=== PATIENT | male | born 1960 | race Caucasian/White ===

== ENCOUNTER 2018-07-08 13:29 | Emergency (ER) | payer MEDICARE, MEDICAID, SELFPAY ==
[2018-07-08 13:39] VITALS: BP 159/74; PULSE 83; RESP 16; TEMP 36.9; O2SAT 98
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
[2018-07-08 14:14] LABS: Bilirubin Negative (Negative); Blood Negative (Negative); Clarity Clear; Glucose Negative (Negative); Ketones Negative (Negative); Leukocyte Esterase Negative (Negative); Nitrite Negative (Negative); Urobilinogen 0.2 EU/dL (Up TO 0.2); pH 5.5 (5-8)
[2018-07-08 14:19] LABS: Abs Immature Grans 0.01 k/cumm (0.0-0.09); Absolute Basophil Count 0.01 k/cumm (0.0-0.2); Absolute Eosinophil Count 0.04 k/cumm (0.0-0.7); Absolute Lymphocyte Count 1.65 k/cumm (1.2-3.4); Absolute Monocyte Count 1.05 k/cumm (0.11-0.7); Basophils % 0.1; Eosinophils % 0.6; HCT 41.8 % (40.0-50.0); HGB 14.6 g/dL (13.5-17.5); Immature Grans % 0.1; Lymphocytes % 23.4; Mean Corp. HGB Concentration 34.9 g/dL (32.0-36.0); Mean Corpuscular Hemoglobin 32.7 pg (27.0-33.0); Mean Corpuscular Volume 93.5 fL (80-95); Monocytes % 14.9; Neutrophils % 60.9; Platelet Count 264 x1000/uL (130-400); RBC 4.47 m/cumm (4.50-6.00); RBC Distribution Width 14.5 % (11.8-14.1); White Blood Cell Count 7.06 k/cumm (4.4-10.8)
[2018-07-08 14:22] LABS: *AMPHETAMINES SCREEN URINE Negative (Negative); *BARBITURATES SCREEN URINE Negative (Negative); *BENZODIAZEPINES SCREEN URINE Negative (Negative); Cannabinoids THC POSITIVE (Negative); Cocaine Screen,Urine Negative (Negative); METHADONE URINE SCREEN Negative (Negative); OPIATES URINE SCREEN Negative (Negative)
[2018-07-08 14:23] LABS: Tricyclic Antidepressants Negative (Negative)
[2018-07-08 14:38] LABS: VALPROIC ACID 18.9 ug/mL (50-100)
[2018-07-08 14:51] LABS: Acetaminophen < 2 ug/mL (10-30); Salicylate 3.9 mg/dL (2.8-20.0)
[2018-07-08 14:58] LABS: ALT 16 U/L (12-78); AST 21 U/L (15-37); Albumin 3.3 g/dL (3.4-5.0); Alkaline Phosphatase 96 U/L (46-116); Anion Gap 5.5 mmol/L (3-11); BUN 8 mg/dL (7-18); Bilirubin, Total 0.4 mg/dL (0.2-1.0); CO2 27.5 mmol/L (21.0-32.0); CREATININE 0.79 mg/dL (0.70-1.30); Calcium 8.5 mg/dL (8.5-10.1); Chloride 104 mmol/L (98-107); Glucose 101 mg/dL (70-100); Potassium 4.3 mmol/L (3.5-5.1); Sodium 137 mmol/L (136-145); TSH 1.02 uIU/mL (0.358-3.74); Total Protein 7.4 g/dL (6.4-8.2)
[2018-07-08 15:14] LABS: ETHANOL BLOOD < 3.0 mg/dL (<3)
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
--- NOTE | 2018-07-08 16:52 | PDOC.ERCMPRO ---
Care Management Progress Note 07/08-Please see Miriam DOUGLAS, note on Prosper's ED admit. Currently we are waiting for [facility] to call back. Prosper is stating to Miriam and to Marisol from [facility] that he is not suicidal or homicidal. At this time, it appears that patient will be discharged back home. Marisol states he will be calling [facility] for transport as they are the ones that brought him. Please see Miriam's note for further details. Multiple huddles this afternoon with providers, [facility], and sawmill supervisor. Care plan below to be followed. Prosper Sy Care Plan 07/08/18 1. Patient being evaluated by [facility] now 2. Regular foods, may have a spoon, nursing to account for post meals 3. Patient is in paper clothing 4. Patient sitter for one on one, sage FIERRO LPN, RN 5. Patient can have phone 6. No personal belongings in the room 7. Supervised to bathroom 8. May have television if available 9. Comfort bath system, supervised to shower when available 10. May have crayons, paper, and activities from the mental health activity cart in ED Please adhere to this Care Plan. Any changes, you must call BRENDONPatricia glass processing worker ([phone]) and [facility] paper cone grader Publicity Expert ([phone]), have a huddle and a new Care Plan must be written.
--- NOTE | 2018-07-08 16:59 | CMPROGNOTE_ITS ---
Care Management Progress Note 07/08-Please see Miriam DOUGLAS, note on Prosper's ED admit. Currently we are waiting for [facility] to call back. Prosper is stating to Miriam and to Marisol from [facility] that he is not suicidal or homicidal. At this time, it appears that patient will be discharged back home. Marisol states he will be calling [facility] for transport as they are the ones that brought him. Please see Miriam's note for further details. Multiple huddles this afternoon with providers, [facility], and steamfitter supervisor. Care plan below to be followed. Prosper Sy Care Plan 07/08/18 1. Patient being evaluated by [facility] now 2. Regular foods, may have a spoon, nursing to account for post meals 3. Patient is in paper clothing 4. Patient sitter for one on one, sage FIERRO LPN, RN 5. Patient can have phone 6. No personal belongings in the room 7. Supervised to bathroom 8. May have television if available 9. Comfort bath system, supervised to shower when available 10. May have crayons, paper, and activities from the mental health activity cart in ED Please adhere to this Care Plan. Any changes, you must call BRENDONPatricia cripple worker ([phone]) and [facility] director of education Integrated Circuit Layout Designer ([phone]), have a huddle and a new Care Plan must be written.
[2018-07-08 18:20] VITALS: BP 140/74; PULSE 80; RESP 14; TEMP 35.5; O2SAT 96
--- NOTE | 2018-07-09 12:53 | PDOC.ERCMPRO ---
Date of Service: 07/08/18 Time of Service: 18:00 Care Management Progress Note CM contacted by ED to arrange transportation family is unwilling to transport patient home. Patient has medicaid and should be eligagiaqble for [facility]. However he lives in [place], [place] medicaid transportation is through [employer] in that area. ED attempted to contact [employer] and transportation was declined due to time of the call and was reported that transportation needed to be arranged prior to 4:00 pm. CM attempted follow up and was unable to contact [employer] services. CM contacted [facility] and requested that patient be returned home through their services as he is currently in [place] not in [place]. Lenora agrees to have patient transported home with a authorization that the hospital will pay the cost of transportation if medicaid does not cover the trip. Lenora reports that criteria must be met which is that the transportation was declined by area service. CM reported off to the ED child care education coordinator who faxed the approval to [facility] this morning. CM left a voicemail for Keisha Barajas to follow up transportation cost and identify why medicaid is not being billed for the service.
--- NOTE | 2018-07-09 13:03 | CMPROGNOTE_ITS ---
Date of Service: 07/08/18 Time of Service: 18:00 Care Management Progress Note CM contacted by ED to arrange transportation family is unwilling to transport patient home. Patient has medicaid and should be eligagiaqble for [facility]. However he lives in [place], [place] medicaid transportation is through [employer] in that area. ED attempted to contact [employer] and transportation was declined due to time of the call and was reported that transportation needed to be arranged prior to 4:00 pm. CM attempted follow up and was unable to contact [employer] services. CM contacted [facility] and requested that patient be returned home through their services as he is currently in [place] not in [place]. Lenora agrees to have patient transported home with a authorization that the hospital will pay the cost of transportation if medicaid does not cover the trip. Lenora reports that criteria must be met which is that the transportation was declined by area service. CM reported off to the ED pet care assistant who faxed the approval to [facility] this morning. CM left a voicemail for Keisha Barajas to follow up transportation cost and identify why medicaid is not being billed for the service.
== END 2018-07-08 19:07 | disposition home or self-care (01) ==
PROVIDERS: Physician Assistant; Emergency Provider Student in an Organized Health Care Education/Training Program; PCP Family Medicine
DX: F31.9 Bipolar disorder, unspecified (principal)
CPT/HCPCS: 36415; 80053; 80307; 99285; 80164; 80320; 80329; 81003; 84443; 85025; 99284

== ENCOUNTER 2025-05-07 22:30 | Inpatient (IN) | payer MEDICARE, MEDICAID, SELFPAY ==
--- NOTE | 2025-05-07 20:03 | W.PC.ACHO ---
Registration Status: PRE IN Primary Language: Preferred Language: Occitan Allergies No Known Allergies Allergy (Unverified 07/08/18 13:42) v v v v v v v v v Sending and/or Receiving Nurses: Please use comment section below to note any information pertinent to the patient hand-off not included above. Information / Comments: Pt presented to [facility] via EMS with chief complaint of AMS. Pt found to be hypoxic with new O2 requirement-2L/min NC-diagnosed with PNA. Pt has baseline R sided weakness d/t previous stroke, question if PNA is aspiration related. No speech evaluation completed per [facility], per RN pt not agreeable to speech consultation today. Pt is baseline incontinent of stool/urine, per RN last BM this afternoon and was diarrhea. Per RN, no skin breakdown noted. Last blood glucose check 74, no insulin coverage required. Pt has 2 20g PIV in the L arm, one in the forearm and one in the AC. Pt has received one dose pip/crystal 3.375g. Last lab values: WBC 10, Hgb 11.8, Hct 34.6, plt WNL. No electrolyte abnormalities per RN. Report received from: MAG Capps [facility]
--- NOTE | 2025-05-07 22:51 | W.PM.HP.N ---
Date of service: 05/07/25 Time of Service: 22:51 Assessment and Plan Assessment and plan (1) Hypoxic respiratory failure: Start date: 05/07/25 Status: Acute Assessment and plan: This is a 64-year-old gentleman who was transferred from [facility] for treatment of aspiration pneumonia. No imaging reports for accompanying patient during transfer. No labs were accompanying patient. Forward chest x-ray does reveal probable left lower lobe infiltrate with patient not having a history of choking or having difficulty swallowing but having very dry mouth with coarse cough. He did not have a fever or elevated WBC. He does have increased oxygen needs. Admit for oxygen supplementation and continue IV Zosyn following up imaging for improvement. Patient should be off oxygen before going home. He is a full code. (2) Aspiration pneumonia: Start date: 05/07/25 Status: Acute Assessment and plan: Swallow evaluation before feeding. This is a left-sided lower lobe infiltrate which is not consistent with aspiration but usually on the right. Patient has no history to suggest aspiration. He is a poor historian. He has had a previous stroke but appears to have a little residual other than generalized weakness. (3) Type 2 diabetes mellitus: Status: Chronic Assessment and plan: Hold metformin and glucometer measurements before meals and at bedtime with sensitive sliding scale coverage. (4) Vascular dementia with behavior disturbance: Status: Chronic Assessment and plan: Patient does appear to have some altered short-term memory but no focal motor deficits or neurological complaints at this time. Swallow evaluation. Review home care prior to discharge to advise on increased home care needs if needed. This should also be followed by his PCP. (5) Bipolar mood disorder: Status: Chronic Assessment and plan: Continue outpatient medical therapy. (6) Hyperlipidemia: Status: Chronic Assessment and plan: Continue outpatient medical therapy. History of Present Illness History of Present Illness Chief Complaint: Cough for 1 week with loss of voice. Narrative: This is a 64-year-old male patient who has vascular dementia and diabetes and was a previous smoker who presented to [facility] with a cough for 1 week which was progressive without fever and with minimal production. He was hypoxic with new oxygen needs not being on oxygen at home and is on no respiratory treatments at home. He does have compromised ability to function with generalized weakness after a stroke and lives with his sister and [id number]. He was in the ED at [facility] did receive Zosyn 1 dose without further and remained hypoxic not being able to be discharged. He was transferred to this institution for inpatient treatment of what appeared to be an aspiration pneumonia according to [facility]. Imaging was not delivered with the patient in transfer. Initial evaluation at this institution as an inpatient hypoxemia without hypercapnia and normal pH on VBG. Lites were normal and the patient was slightly up at 117 with patient have a history of diabetes on metformin. He did not have an elevated FVC viral screening was pending urine drug screen was performed because of patient's slight confusion this was negative. He has no history of prescribed controlled substances or illicit drug use. The patient will remain on Zosyn IV with follow-up imaging and attempt to wean off O2 as he improves. Albuterol nebulizer treatments will be used to help clear secretions. He is a full code. Review of Systems Narrative: 13 point review of systems otherwise unrevealing or stable. Patient is with no weight change and does complain of generalized weakness after his stroke. He usually does not speak with a hoarse voice though he does have some mild confusion with vascular dementia. PFSH All Active Problems (Updated 05/08/25 @ 00:47 by Yomi Chen) Vascular dementia with behavior disturbance (Chronic) Type 2 diabetes mellitus (Chronic) Hyperlipidemia (Chronic) Bipolar mood disorder (Chronic) Aspiration pneumonia (Acute) Hypoxic respiratory failure (Acute) Social History Smoking risk assessment performed?: No Housing: house Do you feel safe in your relationship?: Yes Meds Allergies and Home Medications Allergies Allergy/AdvReac Type Severity Reaction Status Date / Time No Known Allergies Allergy Unverified 07/08/18 13:42 Home Medications ?Medication ?Instructions ?Recorded ?Confirmed ?Type divalproex 500 mg tablet,delayed 1,500 mg PO DAILY 07/08/18 07/08/18 History release (Depakote) atorvastatin 80 mg tablet (Lipitor) 80 mg PO DAILY 05/08/25 05/08/25 History cetirizine 10 mg tablet 10 mg PO Q12H PRN 05/08/25 05/08/25 History clopidogrel 75 mg tablet (Plavix) 75 mg PO DAILY 05/08/25 05/08/25 History fluticasone propionate 50 1 spray intranasal DAILY PRN 05/08/25 05/08/25 History mcg/actuation nasal spray,suspension guaifenesin 600 mg tablet, 600 mg PO BID PRN 05/08/25 05/08/25 History extended release 12 hr metformin 500 mg tablet 500 mg PO DAILY 05/08/25 05/08/25 History Exam Narrative Exam Narrative: General: Patient appears older than stated age, thin and appears chronically ill. He is alert and oriented at least to person and place. His history changes during conversation. His uncertain whether he can hear well. He is mildly confused at baseline. He is in no acute distress speaking in a whispering voice. HEENT: Normocephalic, coarsened facial features, eyes with pupils equal and reactive to light symmetrically, extraocular move intact and sclera anicteric. Oropharynx with dry mucosa and a dentulous. Neck: Supple without JVD. Back: Stooped posture without CVA tenderness. Lungs: Poor respiratory effort with fair aeration, bronchovesicular breath sounds diffusely with decreased aeration over the left compared to right base and expiratory coarse crackles mom focalizing. No rhonchi or expiratory wheeze. No prolonged expiratory phase. Heart: Regular rate and rhythm with distant heart sounds, no murmurs or gallops appreciated. Abdomen: Scaphoid contour, soft and nontender to palpation with no palpable hepatosplenomegaly. Bowel sounds positive all quadrants. Contact aspect: Exam deferred. Extremities: Without clubbing, cyanosis or pitting edema. Fair capillary refill. Muscle wasting diffusely. Skin: Pale, slightly moist and warm. Neuro: Cranial nerves II through XII grossly intact, no tremor. Patient has decreased motor strength diffusely without focalizing. Negative Babinski. Several testing was not performed. Patient has to be assisted to sit up in bed. Psych: Flattened affect with normal mood but repeating himself during conversation. No abnormal thought processes. Remote memory grossly intact with recent memory less intact. Results Imaging Imaging Studies: Exam: XR Chest Exam date and time: 05/07/2025 11:15 PM Age: 64 years old Clinical indication: Hypoxia with pna TECHNIQUE: Imaging protocol: Radiologic exam of the chest. Views: 1 view. COMPARISON: No relevant prior studies available. FINDINGS: Lungs: There is coarse airspace opacification at the left lung base, uncertain chronicity. The underlying lungs are hyperaerated and hyperlucent, probable degree of COPD. Pleural spaces: Blunting of the left costophrenic angle consistent with small left pleural effusion. Heart/Mediastinum: Unremarkable. No cardiomegaly. Bones/joints: Unremarkable. IMPRESSION: Concern for left lower lobe pneumonia. Follow-up to assess clearing recommended. Labs 05/08/25 06:09 05/08/25 06:09 Time Spent Time spent with Patient: >75 minutes Time was spent: preparing to see the patient(eg.review tests), obtaining and/or reviewing separately otained hiistory, ordering medications,tests, procedures, indepentently interpreting results, care coordination and other (Reviewing [facility] transfer information.)
[2025-05-07 22:56] VITALS: BP 100/60; PULSE 57; RESP 16; TEMP 36.2; O2SAT 98
[2025-05-07 23:02] LABS: HCT 29.7 % (40.0-50.0); HGB 9.8 g/dL (13.5-17.5); MCH 31.8 pg (27.0-33.0); MCV 96 fL (80-95); MPV 9.4 fL (8.0-11.0); Platelet Count 103 10^3/uL (130-400); RBC 3.08 10^6/uL (4.36-5.78); RDW 15.2 % (11.8-14.1); RDW-SD 53.1 fL; WBC 4.65 10^3/uL (4.4-10.8)
--- NOTE | 2025-05-07 23:18 | DI.RAD_ITS ---
Exam(s) XR PORTABLE CHEST AP EXAM: XR PORTABLE CHEST AP CLINICAL HISTORY: Hypoxia wuith PNA TECHNIQUE: 2D digital imaging was performed. COMPARISON: No exams were available for comparison FINDINGS: LUNGS: Small left pleural effusion. Infiltrate in left lower lobe. The right lung appears clear. There is suture material at the left medial lung apex. HEART: Normal size. AORTA: Normal diameter. BONES: old rib fractures. Soft tissues: Unremarkable. IMPRESSION: Left lower lobe pneumonia. Small left pleural effusion. DATA REPOSITORY: RADIATION DOSE DELIVERED:
[2025-05-07 23:24] LABS: BE (Venous) 5 mmol/L (-2-3); HCO3 (Venous) 30 mmol/L (23-28); O2 Sat (Venous) 40 %; TCO2 (Venous) 28 mmol/L (24-29); pCO2 (Venous) 49 mmHg (41-51); pO2 (Venous) 27 mmHg
[2025-05-07 23:28] LABS: Anion Gap 0.9 mmol/L (3-11); BUN 9 mg/dL (7-18); CO2 31.1 mmol/L (21.0-32.0); CREATININE 0.7 mg/dL (0.70-1.30); Calcium 8.2 mg/dL (8.5-10.1); Chloride 108 mmol/L (98-107); Estimated GFR 102.25 (mL/min/1.73m2); Glucose 117 mg/dL (74-106); Potassium 4.4 mmol/L (3.5-5.1); Sodium 140 mmol/L (136-145); TSH (W/Ref FT4) 3.07 uIU/mL (0.36-3.74)
--- NOTE | 2025-05-07 23:38 | DI.VRAD_ITS ---
PROCEDURE INFORMATION: Exam: XR Chest Exam date and time: 05/07/2025 11:15 PM Age: 64 years old Clinical indication: Hypoxia with pna TECHNIQUE: Imaging protocol: Radiologic exam of the chest. Views: 1 view. COMPARISON: No relevant prior studies available. FINDINGS: Lungs: There is coarse airspace opacification at the left lung base, uncertain chronicity. The underlying lungs are hyperaerated and hyperlucent, probable degree of COPD. Pleural spaces: Blunting of the left costophrenic angle consistent with small left pleural effusion. Heart/Mediastinum: Unremarkable. No cardiomegaly. Bones/joints: Unremarkable. IMPRESSION: Concern for left lower lobe pneumonia. Follow-up to assess clearing recommended. Dictated and Authenticated by: Andreina Uriostegui MD. Orderin April Celaya MD
[2025-05-08] VITALS (9 sets, daily range): BP systolic 105–123; BP diastolic 52–60; PULSE 61–73; RESP 16–22; TEMP 36–36.6; O2SAT 94–100
[2025-05-08 00:33] LABS: Bilirubin Negative (Negative); Blood Negative (Negative); Clarity Clear (Clear); Glucose Negative (Negative); Ketones Negative (Negative); Leukocyte Esterase Negative (Negative); Nitrite Negative (Negative); Specific Gravity 1.025 (1.005-1.025); pH 6.5 (5-8)
[2025-05-08 00:49] LABS: *AMPHETAMINES SCREEN URINE Negative (Negative); *BENZODIAZEPINES SCREEN URINE Negative (Negative); Cannabinoids THC Negative (Negative); Cocaine Screen,Urine Negative (Negative); METHADONE URINE SCREEN Negative (Negative); OPIATES URINE SCREEN Negative (Negative)
[2025-05-08 00:50] LABS: *BARBITURATES SCREEN URINE Negative (Negative); Tricyclic Antidepressants Negative (Negative)
[2025-05-08] MEDS: Enoxaparin 40 MG/0.4 ML SYR SC (01:07)
[2025-05-08 06:36] LABS: HCT 35.7 % (40.0-50.0); HGB 11.6 g/dL (13.5-17.5); MCH 31.4 pg (27.0-33.0); MCHC 32.5 % (32.0-36.0); MCV 97 fL (80-95); MPV 9.6 fL (8.0-11.0); Platelet Count 155 10^3/uL (130-400); RDW 14.6 % (11.8-14.1); RDW-SD 52.2 fL; WBC 8.09 10^3/uL (4.4-10.8)
[2025-05-08 07:02] LABS: ALT 17 U/L (16-63); AST 31 U/L (15-37); Albumin 2.3 g/dL (3.4-5.0); Alkaline Phosphatase 56 U/L (46-116); Anion Gap 7.6 mmol/L (3-11); BUN 8 mg/dL (7-18); Bilirubin, Total 0.5 mg/dL (0.2-1.0); CO2 28.4 mmol/L (21.0-32.0); CREATININE 0.9 mg/dL (0.70-1.30); Calcium 8.4 mg/dL (8.5-10.1); Chloride 104 mmol/L (98-107); Estimated GFR 94.78 (mL/min/1.73m2); Glucose 121 mg/dL (74-106); Magnesium 1.4 mg/dL (1.8-2.4); Potassium 3.7 mmol/L (3.5-5.1); Sodium 140 mmol/L (136-145); Total Protein 6.3 g/dL (6.4-8.2)
[2025-05-08] MEDS: Divalproex 500 MG TABEC 1500 MG PO (08:46)
[2025-05-08] MEDS: Clopidogrel 75 MG TAB PO (08:46)
[2025-05-08] MEDS: Acetaminophen 325 MG TAB PO ×2 (09:04→14:43)
[2025-05-08] MEDS: Normal Saline Flush 10 ML SYR IVP ×4 (09:05→22:55)
--- NOTE | 2025-05-08 09:37 | INITIAL_ITS ---
Date of service: 05/08/25 Time of Service: 09:37 Care Management Initial Assmt Initial Assessment Reason for Hospitalization: aspiration pneumonia Functional Status/Living Situation Patient Presentation: Prosper presented to [facility] from [facility], where there was no bed availability for him. He had complaints of a cough x 1 week. He is requiring O2, is on RA as baseline. Prosper has generalized weakness from a stroke, and he lives with his sister, Katharina and brother in [place], who are his Choices for Care paid caregivers through [facility]. Prosper's Engineering Intern is Brenda, through the [facility] on Aging. Prosper has a very supportive family, whom are all close. He has a dog, Shanel, whom he spends a lot of time with. Prosper has limited speech, but is able to make himself clear, and he does understand. He is extremely friendly and quick with a smile. Prosper had a barium swallow today. He is also ordered for a speech consult, which Katharina was pleased to know, as Dominick sometimes has trouble with thin liquids and large pills. Prosper has a psychiatric history, and he will be reestablishing care at Town of Residence: [place] Resides with: Other (sister, Katharina and brother in [place] Significant Other/Family: Local (lives with his sister and her ) Caregiver/Guardian: Katharina and [place] Natural Supports: Katharina and [place], 2 other sisters Employment Status: Disabled Instrumental Activities of Daily Living (ADLs): Requires support Activities/Hobbies/SocialSupport: Loves his dog, Shanel and spending time with family Physical Functioning/Mobility Assistive Device: FWW, hospital bed Advance Directives Advance Directives: Do you have an Advance Directive: N , 15:47 AD On File at [facility]: N 07/08/18, 15:47 Date Asked 05/07/26 Today, 09:23 AD Date Reviewed COLST On File at [facility] COLST Date Scanned Code Status Resuscitation Status Full Code Insurance Coverage/Financial Issues Insurance: Medicaid and Medicare Care Team Visit Care Team Role Provider Type Zaira Arce APRN MD [facility] STAFF PHYSICIAN Mu Lora Primary Care Provider NON STAFF PHYSICIAN Beth Seals, SOCIAL INSURANCE ANALYST Other Providers SPEECH LANGUAGE PATHOLOGIST Roxann Zimmerman, SOCIAL INSURANCE ANALYST Other Providers SPEECH LANGUAGE PATHOLOGIST Helena Melendez Other Providers SPEECH LANGUAGE PATHOLOGIST Halima Mckeon, SOCIAL INSURANCE ANALYST Other Providers SPEECH LANGUAGE PATHOLOGIST Micaela Shankar, SOCIAL INSURANCE ANALYST Other Providers SPEECH LANGUAGE PATHOLOGIST Sathish Brar MD Admit Provider MD [facility] STAFF PHYSICIAN Attending Provider Discharge Potential Discharge Needs: PCP F/U Appt Anticipated Barriers to Discharge: None Identified Patient/Family Education Needs: Review discharge instructions, discuss Ask Me Three Transportation: Private vehicle (with Katharina and [place]) Plan: Anticipate that Prosper will discharge home once medically cleared with new HH services of PT and possibly speech, based on their evaluation. He will f/u with his PCP and continue per his plan of care. He will transport home in a private vehicle with his caregivers. CM will continue to follow. Social Determinants of Health Screening Will the Patient Participate in the Screening?: Unable to obtain Do you worry about having a steady place to live?: choose not to answer In the past 12 months, have you had to go without electric, gas, oil or water in your home?: choose not to answer Has lack of transportation kept you from medical appointments or from doing things needed for daily living?: choose not to answer Has anyone in your life made you feel unsafe or unsupported?: choose not to answer Do you speak a language other than Kinyarwanda at home?: No Does the patient want assistance with any of the above?: No Comments: patient unable to speak coherently, has episode of confusion. Health Related Social Needs Health related social needs: material hardship(utilities) (Z59.12) Health related social needs details: Patient unable to give more info., poor historian. PFSH All Active Problems (Updated 05/08/25 @ 00:47 by Yomi Chen) Vascular dementia with behavior disturbance (Chronic) Type 2 diabetes mellitus (Chronic) Hyperlipidemia (Chronic) Bipolar mood disorder (Chronic) Aspiration pneumonia (Acute) Hypoxic respiratory failure (Acute) Social History Smoking risk assessment performed?: No Housing: house Do you feel safe in your relationship?: Yes Anticipated HH Services Anticipated HH Services at [facility] ([facility] [place] [facility] [place] [phone] ) Services Needed (PT and ?SOCIAL INSURANCE ANALYST).
[2025-05-08] MEDS: MAGNESIUM SULFATE 4 GM/100 ML BAG IV_INF (11:26)
[2025-05-08] MEDS: PIPERACILLIN/TAZO 4.5 GM in Normal Saline 100 ML IVPB ×3 (11:27→22:55)
--- NOTE | 2025-05-08 12:29 | IN_ITS ---
PT Notes Visit Reasons: Aspiration Pneumonia Inpatient Physical Therapy Evaluation Date: 05/08/25 Referring Doctor: Stella Day Precautions: N/A Patient Profile/Admitting Diagnosis: aspiration pneumonia - transferred from [facility] PMHX: previous CVA affecting R side Subjective: Pt has a difficult time communicating due to difficulty speaking but he is able to describe that he lives with his sister and brother in [place], [place]. Based on previous notes, he initially presented to [facility] for AMS and was found to be hypoxic. He was diagnosed with aspiration pneumonia and transferred here for a swallow evaluation. He states that he has a walker at home but normally does not use it. He does not currently drive. His brother and sister do a lot for him but he states he is able to do stuff if he wants to. He states he does not have an issue with stairs normally. Objective: General Observation: on 2 L/min via NC, FC in place, IV in place, sitting up in the chair Mental Status: A+Ox3 Pain: c/o pain in the area of his lower abdomen Vital Signs: monitored by nursing ROM: Right Upper Extremity: limited to roughly 90 deg of active shoulder flexion Left Upper Extremity: WFL Right Lower Extremity: WFL Left Lower Extremity: WFL Strength: Right Upper Extremity: grossly 4/5 Left Upper Extremity: grossly 4+/5 Right Lower Extremity: grossly 4+/5 Left Lower Extremity: grossly 4+/5 Bed Mobility/Transfers: supine to sitting w/SBA sitting to supine w/SBA sitting to standing w/SBA standing to sitting w/SBA Gait: ambulates 10 ft w/RW and CGA to toilet, ambulates 30 ft w/o AD around room requiring CGA - looses balance once but is able to self correct Balance: Static Sitting: good Dynamic Sitting: good Static Standing: good - able to perform feet together and semi tandem stance for >10 seconds, unable to perform tandem stance Dynamic Standing: fair - should use RW for all forms of ambulation as he did lose his balance once when not using an AD Special Tests: Mobility Limitations Standardized Measure [facility] AM-PAC 6 clicks Basic Mobility Inpatient Short Form: Raw Score: 18 CMS Score: 46.58% Informed Consent/Education: Patient instructed in purpose of PT consult and plan of care. Assessment: Patient was difficult to fully evaluate today due to his difficulty communicating and due to the pain he was experiencing from his catheter. He was able to ambulate with me but did require the RW and CGA. He should continue to use the RW for all forms of ambulation as he lost his balance when attempting to walk without an AD. His strength is fairly good bilaterally and does not seem to be a factor with his balance. He would benefit from home health PT when returning home to allow him to progress functionally. He will also benefit from PT as long as he is in the hospital to progress him as tolerated. Patient is assessed as a [x] Low [id number] complexity based on the following: History: Low Examination: Low Presentation: Low Decision Making: Low Goals: Goals X1 week 1. Supine-Sit - independent 2. Sit-Supine - independent 3. Sit-Stand - independent 4. Stand-Sit - independent 5. Bed-Chair - independent 6. Chair-Bed - independent 7. Gait - >50 ft w/RW and SBA 8. Stairs - perform 3 stairs w/bilat UE support and SBA 9. Independent with home exercise program Plan of Care/Treatment Plan: 1-2x/day, 7 days/week x 1 week. Plan of care has been reviewed with the [facility] providing the service under Physical Therapy direction. Initiate Physical Therapy intervention for strengthening, bed mobility, transfers, gait, stairs, balance training, use of assistive device. DISCHARGE RECOMMENDATIONS: [x] Home with home health services TREATMENT CODE/TIME: Walter Gaffney ([id number]) x1 - 20 min
[2025-05-08] MEDS: Insulin Aspart 300 UNITS/3 ML PEN SC ×3 (13:24→23:19)
[2025-05-08] MEDS: Baclofen 10 MG TAB PO (14:43)
--- NOTE | 2025-05-08 15:59 | PGE_ITS ---
Date of Service Date of service: 05/08/25 Time of Service: 16:00 Assessment and Plan Assessment and plan (1) Hypoxic respiratory failure: Status: Acute Assessment and plan: thought secondary to aspiration pneumonia Speech evaluation and barium swallow pending Wean oxygen as able (2) Aspiration pneumonia: Status: Acute Assessment and plan: Continue Zosyn day 1 Albuterol as needed Mucinex twice daily (3) Type 2 diabetes mellitus: Status: Chronic Assessment and plan: diabetic diet when taking PO hold metformin glucometer measurements before meals and at bedtime with sensitive sliding scale coverage. (4) Vascular dementia with behavior disturbance: Status: Chronic Assessment and plan: Patient does appear to have some altered short-term memory but no focal motor deficits or neurological complaints at this time. Swallow evaluation. Review home care prior to discharge to advise on increased home care needs if needed. This should also be followed by his PCP. (5) Bipolar mood disorder: Status: Chronic Assessment and plan: Continue outpatient medical therapy. (6) Hyperlipidemia: Status: Chronic Assessment and plan: Continue outpatient medical therapy. Subjective Subjective Interval history since last seen: Patient with bloody urine from [place] following traumatic catheterization. Reporting bladder spasms Exam Narrative Exam Narrative: Thin male appearing younger than stated age head is atraumatic eyes nonicteric noninjected oral mucosas slightly dry neck full range of motion no JVD he is awake alert appropriate respirations even and unlabored breath sounds diminished in the bases no wheezing scattered coarse breath sounds left cardiovascular regular rate and rhythm. Abdomen flat extremities without edema moves all extremities Objective Last Vital Signs Temp 36.6 C 05/08/25 11:31 Pulse 72 05/08/25 11:31 Resp 22 05/08/25 11:31 BP 113/55 L 05/08/25 11:31 Pulse Ox 97 05/08/25 13:49 Laboratory Results - last 24 hr 05/07/25 05/07/25 05/07/25 22:23 22:55 23:20 WBC 4.65 RBC 3.08 L Hgb 9.8 L Hct 29.7 L MCV 96 H MCH 31.8 MCHC 33.0 RDW 15.2 H Plt Count 103 L MPV 9.4 VBG pH 7.40 VBG pCO2 49 VBG pO2 27 VBG HCO3 30 H VBG Total CO2 28 VBG O2 Saturation 40 VBG Base Excess 5 H Sodium 140 Potassium 4.4 Chloride 108 H Carbon Dioxide 31.1 Anion Gap 0.9 L BUN 9 Creatinine 0.7 Est GFR (CKD-EPI 2020) 102.25 Glucose 117 H Calcium 8.2 L Magnesium Total Bilirubin AST ALT Alkaline Phosphatase Total Protein Albumin TSH 3.07 Urine Color Urine Clarity Urine pH Ur Specific [place] Urine Protein Urine Ketones Urine Blood Urine Nitrite Urine Bilirubin Urine Urobilinogen Ur Leukocyte Esterase Urine Glucose Urine Opiates Screen Urine Methadone Screen Ur Barbiturates Screen Ur Tricyclics Screen Ur Amphetamines Screen U Benzodiazepines Scrn Urine Cocaine Screen Ur THC Screen COVID-19 Source Cancelled SARS-CoV-2 (PCR) Cancelled Influenza Type A (PCR) Cancelled Influenza Type B (PCR) Cancelled RSV (PCR) Cancelled 05/07/25 05/08/25 23:45 06:09 WBC 8.09 RBC 3.70 L Hgb 11.6 L Hct 35.7 L MCV 97 H MCH 31.4 MCHC 32.5 RDW 14.6 H Plt Count 155 D MPV 9.6 VBG pH VBG pCO2 VBG pO2 VBG HCO3 VBG Total CO2 VBG O2 Saturation VBG Base Excess Sodium 140 Potassium 3.7 Chloride 104 Carbon Dioxide 28.4 Anion Gap 7.6 BUN 8 Creatinine 0.9 Est GFR (CKD-EPI 2020) 94.78 Glucose 121 H Calcium 8.4 L Magnesium 1.4 L Total Bilirubin 0.5 AST 31 ALT 17 Alkaline Phosphatase 56 Total Protein 6.3 L Albumin 2.3 L TSH Urine Color Yellow Urine Clarity Clear Urine pH 6.5 Ur Specific [place] 1.025 Urine Protein Negative Urine Ketones Negative Urine Blood Negative Urine Nitrite Negative Urine Bilirubin Negative Urine Urobilinogen 4.0 H Ur Leukocyte Esterase Negative Urine Glucose Negative Urine Opiates Screen Negative Urine Methadone Screen Negative Ur Barbiturates Screen Negative Ur Tricyclics Screen Negative Ur Amphetamines Screen Negative U Benzodiazepines Scrn Negative Urine Cocaine Screen Negative Ur THC Screen Negative COVID-19 Source SARS-CoV-2 (PCR) Influenza Type A (PCR) Influenza Type B (PCR) RSV (PCR) Time Spent with Patient Time Spent with Patient: 35-49 minutes Time was spent: preparing to see the patient(eg.review tests), obtaining and/or reviewing separately otained hiistory, ordering medications,tests, procedures, indepentently interpreting results and counseling the patient
--- NOTE | 2025-05-08 16:03 | DI.RAD_ITS ---
Exam(s) RF MODIFIED SPEECH BA SWALLOW EXAM: RF MODIFIED SPEECH BA SWALLOW CLINICAL HISTORY: aspiration TECHNIQUE: Modified barium swallow was performed in conjunction with speech pathology. CONTRAST MATERIAL: Multiple consistencies of oral barium contrast were administered. COMPARISON: No exams were available for comparison FINDINGS: Note that this is not a dedicated esophagram, distal esophagus not evaluated. There or few episodes of laryngeal penetration and aspiration with thin liquids no aspiration identified with thicker consistencies. Significant vallecular residue. Speech pathology report to follow. IMPRESSION: Several episodes of laryngeal penetration and aspiration observed with thin liquids. RADIATION DOSE DELIVERED: caren Jones=24.2 mGy
[2025-05-08] MEDS: Barium Sulfate 40% W/V 240 ML BTL PO (16:06)
[2025-05-08] MEDS: Barium Sulfate Oral Paste 40% W/V 230 ML TUBE PO (16:08)
[2025-05-08] MEDS: Barium Sulfate 81% w/w for Oral Suspension 148 GM BTL PO (16:09)
[2025-05-08] MEDS: Barium Sulfate 700 MG TAB PO (16:11)
--- NOTE | 2025-05-08 16:36 | W.SPSTE ---
Date of service: 05/08/25 Time of Service: 16:36 Subjective Modified Barium Swallow Evaluation- Inpatient Speech Language Pathology Referred by: Sathish Brar MD Start time: 15:15 End time: 16:00 Total patient contact: 45 min Referral Type: Routine Swallow Consult Precautions: Standard, Full Code, Fall Reason for Referral/HPI: Patient is a 64 y/o M with history of CVA several years ago who lives with family who help to care for him. He was transferred to [facility] for treatment of suspected aspiration pneumonia with recommendation to complete inpatient MBSS. 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 Moderate chronic oropharyngeal dysphagia.Characterized primarily by poor oral transit, mildly reduced hyo-laryngeal complex movement, and absent pharyngeal stripping wave resulting in intermittent trace penetration and silent aspiration into the airway during/after the swallow. Complicated by appearance of oral apraxia, patient with difficulty completing volitional secondary swallows, cough, throat clear, and apparent sensory deficit for significant vallecular>pyriform residue of solids and purees. While he does aspirate with thin liquids, this is a minority of trials and he appears to tolerate small, single sips of thin liquids quite well for a majority of trials. It is reasonable to adjust his diet for solids efficiency and oral-pharyngeal clearance, and remain with thin liquid recommendation with enhanced aspiration precuations in place (safety strategies, increased oral care etc) as below. Patient appears to be at mild risk for potential aspiration PNA and/or pulmonary compromise and mild risk for malnutrition, dehydration. Diet modification is not indicated; non-oral nutrition is not indicated. Swallow prognosis is fair given: Positive prognostic factors: Effectiveness of trialed strategies, age Negative prognostic factors: Time since onset, Cognitive status, and pending patient/caregiver training in risk management as outlined, including use of trialed compensatory strategies. Patient appears to be a good candidate for behavioral swallow rehabilitation. FURTHER INPATIENT CIGAR MAKING MACHINE OPERATOR SERVICES: Patient to be followed while on unit. DISCHARGE RECOMMENDATIONS: Home health CIGAR MAKING MACHINE OPERATOR or outpatient CIGAR MAKING MACHINE OPERATOR referral local to pt's home. Diet modification is indicated as follows for the purpose of reduced risk of aspiration, reduced risk of choking, reduced mastication abilities, reduced oral residue, reduced pharyngeal stasis. Diet Recommendations: ? SOLIDS: 6-Soft & Bite-Sized Solids with extra moisture 5-Minced & Moist Solids - for meats LIQUIDS: 0-Thin Liquids MEDICATIONS: Crushed as able With 4-Purees Alter medications only as advised by MD or Pharmacist RISK MANAGEMENT: Level of Assistance/Supervision: 1:1 close supervision for all PO intake Positioning and environment: PO intake only when awake/alert? Reduce auditory and/or visual distractions when eating Up to chair Oral hygiene Before/after PO intake Using friction with toothbrush on all oral structures as tolerated Strategies/Adaptations/Assistive Equipment: Very Small sips Small bites Alternate intake of liquids and solids Education Provided to: Nursing Patient Topics Addressed: anatomy/physiology of swallowing mechanism definition and impacts of aspiration impact of current diagnoses on swallow function role of CIGAR MAKING MACHINE OPERATOR in management of swallow disorders overt s/sx to monitor for re: potential aspiration of food / liquids relationship between respiratory function and deglutition rationale and instruction for additional risk management strategies as below SUBJECTIVE: Patient received: alert/awake. Agreeable to evaluation. Pain Reported n/a Baseline Swallow Function: Patient denies swallowing difficulty prior to admission and eats a regular diet at baseline. OBJECTIVE Patient positioning: Up to chair/90 degrees Oral care: Poor - no dentition, dry white film coating tongue Respiratory status: Low flow nasal cannula, Tolerates well without s/sx dyspnea, baseline coughing noted (wet) Orientation/Mental status: Oriented to situation, Appears with low insight into deficits (swallowing), follows basic commands but requires simple, 1-step instructions. Speech: He is largely aphonic, can communicate verbally 1-2 words at a time but is largely dependent on Y/N questions to communicate Oral Mechanism Examination: Dentition: Edentulous Oral mucosa: Dry, Poor oral care? Cranial Nerve Assessment: CN V ? Trigeminal Facial Sensation WNL Jaw Strength/ROM WNL ?WNL CN VII- Facial WNL labial ROM, strength,poor coordination WNL CN IX ? Glossopharyngeal Unable to phonate on command, but velopharynx appears normal at rest. ? CN X ? Vagus Unable to coordinate cough/throat clear on command. Aphonic. abnormal CX XII ? Hypoglossal Deviates R at rest (indicates R weakness) - poor coordination. abnormal PO Intake: Trials Assessed (prior to MBSS procedure) IDDSI 0 Thin Liquids Oral Phase Findings: Difficulty with bolus manipulation Difficulty with a-p transport Pharyngeal Phase Findings: Cough after swallow Esophageal Phase Findings: ? No observed or reported symptoms at bedside ? [place] Swallow Protocol Results: FAIL ? S/sx aspiration observed INSTRUMENTAL ASSESSMENT (MBSS/VFSS): Videofluoroscopic Swallow Evaluation (VFSE/MBSS) was conducted in the lateral and [id number] projection by Speech-Language Pathologist, in collaboration with Radiologist, to evaluate oropharyngeal swallow function. Anatomic view under fluoroscopy: WFL PO Barium Contrast Trials Oral barium water-soluble contrast was administered as follows: IDDSI Level 0 Varibar thin liquid (40% w/v) IDDSI Level 2 Varibar nectar thick/mildly thick liquid (40% w/v) IDDSI Level 4 Varibar pudding/pureed/extremely thick (40% w/v) IDDSI Level 7 Regular Solid: 1/2 leyda cracker coated in 3 mL Varibar pudding 13 mm barium tablet taken with Puree. MBSImP Component Scores: COMPONENT Scale SCORE 1 Lip closure (0-4) 1 Resulted in interlabial escape, without progression to anterior lip 2 Hold Position (0-3) 0 Maintained a cohesive bolus between tongue to palatal seal 3 Bolus Preparation (0-4) 2 Demonstrated disorganized chewing/ mashing with solid pieces of bolus unchewed 4 Bolus Transport (0-4) 3 Was with repetitive/disorganized motion of the tongue 5 Oral Residue (0-4) 2 Was a collection on oral structures 6 Swallow Initiation (0-4) 1 Occurred when the bolus head was in valleculae 7 Soft Palate Elevation (0-4) 0 Resulted in no bolus between soft palate and the pharyngeal wall 8 Laryngeal Elevation (0-3) 1 Was decreased with partial superior movement of thyroid cartilage/partial approximation of arytenoids to epiglottic petiole 9 Anterior Hyoid Motion (0-2) 1 Demonstrated partial anterior movement 10 Epiglottic Movement (0-2) 1 Resulted in partial inversion 11 Laryngeal Closure (0-2) 1 Was incomplete with narrow a column of air/contrast in laryngeal vestibule 12 Pharyngeal Stripping Wave (0-2) 2 Was absent 13 Pharyngeal Contraction (0-3) NA 14 PES Opening (0-3) 1 Demonstrated partial distension/partial duration, with partial obstruction of flow 15 Tongue Base Retraction (0-4) 2 Allowed a narrow column of contrast or air between the retracted tongue base and the posterior pharyngeal wall 16 Pharyngeal Residue (0-4) 2 Was a collection of residue within or on pharyngeal structures 17 Esophageal Clearance (0-4) NA Results: COMPONENT Scale SCORE 1 Oral Score (0-18) 8 2 Pharyngeal Score (0-29) 11 3 Esophageal Score (0-4) 0 Penetration-Aspiration Scale: COMPONENT Scale SCORE 1 Thin liquid (1-8) 8 Contrast entered the airway, passed below the vocal folds, and no effort was made to eject. 2 [place] thick (1-8) 1 Contrast did not enter the airway 3 Honey thick (1-8) NA 4 Pudding thick (1-8) 1 Contrast did not enter the airway 5 Cookie (1-8) 1 Contrast did not enter the airway Trialed Compensatory Strategies & Outcome: Maneuvers Successful (+) nsuccessful (-) Postures Successful (+) Unsuccessful (-) 3 second Preparatory Set? +/- ? Chin Tuck Posture? - ? Cough? ? Posterior Head tilt?? - ? Reflexive? Cued? Throat Clear? ? Head Tilt to? Reflexive? Left? Cued? Right? ? Saliva swallow? Head Turn/Rotate to? ? Supraglottic Swallow? Left? ? Super-supraglottic Swallow? Right? ? Bolus Modifications Successful (+) Unsuccessful (-) Delivery/Alternating Consistencies ? Follow with Liquid Wash + ? Follow with Solid Bolus? + Delivery/Via Straw? ? Reduced Volume? + ? Reduced Rate of Intake? + ? Increased Viscosity? + ? Other:?? ? PLAN: Frequency: 2-3x/week for 1-2 weeks Goals: [facility] Goals: Patient will remain free from aspiration-related illness, malnutrition, and dehydration. Patient/family will verbalize comprehension of education provided re: dx , strategies to maximize functioning, and role of ST. Short Term Goals: Patient will participate in MBSS to inform aspiration risk and plan of care. Patient will tolerate safest/least restrictive Diet and Thin liquids without overt s/s aspiration across 2/2 visits. Patient will tolerate PO trials for consideration of diet upgrade without overt s/s aspiration across 2/2 visits. 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
[2025-05-08] MEDS: Atorvastatin 40 MG TAB 80 MG PO (22:56)
[2025-05-09] VITALS (7 sets, daily range): BP systolic 91–110; BP diastolic 57–83; PULSE 60–81; RESP 17–20; TEMP 36.2–37.4; O2SAT 91–99
[2025-05-09] MEDS: PIPERACILLIN/TAZO 4.5 GM in Normal Saline 100 ML IVPB ×4 (04:08→22:57)
[2025-05-09] MEDS: Normal Saline Flush 10 ML SYR IVP ×3 (04:09→19:32)
[2025-05-09] MEDS: Lidocaine 2% Jelly 11 ML SYR UR (04:19)
--- NOTE | 2025-05-09 04:26 | NUR.NOTE ---
Nursing Note: While administering IV abx at 0400 the pt became restless, intense facial grimacing and rolling in bed while waving his arms. Pt expressed that he was in a great amount of pain in his penis, stating It feels like I have to pee but ir wont come out. Bladder scanned pt and there was minimal urine in bladder (12ml). Administered Urojet at pt request with positive effect. Pt appears more comfortable in bed, stated Thats better but not gone, Thank you.
--- NOTE | 2025-05-09 10:12 | PT.INTREAT ---
Date of service: 05/09/25 Time of Service: 09:50 PT Notes Visit Reasons: Aspiration Pneumonia Inpatient Physical Therapy Treatment Note [facility] Date: May 09, 2025 PRECAUTIONS:Standard SUBJECTIVE: Prosper is agreeable to exercises this morning however does not want to get out of bed. Afternoon session ready to go for a walk. OBJECTIVE: ? Therapeutic Activities (51528a1-28 minutes): Direct one-on-one instruction in dynamic activities to improve functional performance. ? BED MOBILITY/TRANSFERS? Rolling L/R: Independent Supine-sit: Independent? Sit-supine: Independent ? Sit-stand: Independent? Stand-sit: Independent ? Provided skilled cues and instruction on performance and technique throughout. ? GAIT? ?refused in AM session, agreeable in pm session ? Assistive Device: FWW? Weight bearing: FWB Assist: Cueing for pacing and keeping walker closer to him for support.? Distance:? 150ft ? Deviation: upon fatigue R LE poor foot clearance , forwardly flexed? Therapeutic Exercises ([id number] minutes): Direct one-on-one instruction in therapeutic exercises to develop strength, endurance, range of motion and flexibility. ? Exercises ? SLR x10 R/L Heel slides x10 R/L Sit to stand x5 LAQ x10 R/L Ankle pumps x10 R/L Shoulder flexion x10 R/L Elbow flexion x10 R/L Grasp x10 R/L ? Provided skilled instruction in proper exercise performance Provided skilled manual cues to facilitate proper muscle recruitment ASSESSMENT: Prosper is independent with all transfers and bed mobility. PM session agreeable to ambulation. Did note fatigue at approximately 75 feet however was able to make back to room without rest. Will continue to increase his functional endurance with ambulation within tolerance PLAN: Continue with current plan of care increasing functional endurance and mobility TREATMENT CODE/TIME:[id number] minutes 9:50-10:10 am;[id number] minutes 12:50-1:05 DISCHARGE RECOMMENDATION: Home with home health services JOHN Rubio Disclaimer: This note was created using [employer] voice recognition software. It was reviewed for major content. However, there may be multiple small discrepancies and errors due to the voice recognition aspects of the software.
[2025-05-09] MEDS: Enoxaparin 40 MG/0.4 ML SYR SC (10:26)
[2025-05-09] MEDS: Divalproex 500 MG TABEC 1500 MG PO (10:26)
[2025-05-09] MEDS: Clopidogrel 75 MG TAB PO (10:26)
--- NOTE | 2025-05-09 13:27 | PGE_ITS ---
Date of Service Date of service: 05/09/25 Time of Service: 13:30 Assessment and Plan Assessment and plan (1) Hypoxic respiratory failure: Status: Acute Assessment and plan: has been weaned off oxygen (2) Aspiration pneumonia: Status: Acute Assessment and plan: Continue Zosyn day 2 Albuterol as needed Mucinex twice daily (3) Type 2 diabetes mellitus: Status: Chronic Assessment and plan: diabetic diet with no modifications for now, see speech note glucometer measurements before meals and at bedtime with sensitive sliding scale coverage. (4) Vascular dementia with behavior disturbance: Status: Chronic Assessment and plan: no behavioral issues. (5) Bipolar mood disorder: Status: Chronic Assessment and plan: Continue outpatient medical therapy. (6) Hyperlipidemia: Status: Chronic Assessment and plan: Continue outpatient medical therapy. discussed with DR Montgomery Subjective Subjective Patient reports: no new complaints, feels better, tolerating liquids well, tolerating a regular diet, voiding w/o difficulty and afebrile; denies shortness of breath Exam Narrative Exam Narrative: Thin male appearing younger than stated age head is atraumatic eyes nonicteric noninjected oral mucosas slightly dry neck full range of motion no JVD he is a wake alert appropriate respirations even and unlabored breath sounds diminished in the bases no wheezing scattered coarse breath sounds left cardiovascular regular rate and rhythm. Abdomen flat extremities without edema moves all extremities Objective Last Vital Signs Temp 37.1 C 05/09/25 10:16 Pulse 60 05/09/25 10:16 Resp 17 05/09/25 10:16 BP 108/58 L 05/09/25 10:16 Pulse Ox 93 05/09/25 10:16 Time Spent with Patient Time Spent with Patient: 35-49 minutes Time was spent: preparing to see the patient(eg.review tests), obtaining and/or reviewing separately otained hiistory, ordering medications,tests, procedures, referring, communicating with other health laboratory animal caretaker, indepentently interpreting results and counseling the patient
[2025-05-09] MEDS: Atorvastatin 40 MG TAB 80 MG PO (19:32)
[2025-05-10] VITALS (7 sets, daily range): BP systolic 102–132; BP diastolic 60–72; PULSE 54–63; RESP 16–20; TEMP 36–36.6; O2SAT 87–97
[2025-05-10] MEDS: PIPERACILLIN/TAZO 4.5 GM in Normal Saline 100 ML IVPB ×3 (04:13→16:07)
[2025-05-10] MEDS: Normal Saline Flush 10 ML SYR IVP ×5 (04:14→22:31)
[2025-05-10 06:42] LABS: HCT 27.8 % (40.0-50.0); HGB 9.2 g/dL (13.5-17.5); MCH 31.5 pg (27.0-33.0); MCHC 33.1 % (32.0-36.0); MCV 95 fL (80-95); MPV 9.2 fL (8.0-11.0); Platelet Count 113 10^3/uL (130-400); RBC 2.92 10^6/uL (4.36-5.78); RDW 15.3 % (11.8-14.1); RDW-SD 53.4 fL; WBC 4.35 10^3/uL (4.4-10.8)
[2025-05-10 07:02] LABS: Anion Gap 6.3 mmol/L (3-11); BUN 9 mg/dL (7-18); CO2 28.7 mmol/L (21.0-32.0); CREATININE 0.8 mg/dL (0.70-1.30); Calcium 8.2 mg/dL (8.5-10.1); Chloride 109 mmol/L (98-107); Estimated GFR 98.21 (mL/min/1.73m2); Glucose 91 mg/dL (74-106); Magnesium 1.8 mg/dL (1.8-2.4); Potassium 3.9 mmol/L (3.5-5.1); Sodium 144 mmol/L (136-145)
[2025-05-10] MEDS: Acetaminophen 325 MG TAB PO (08:40)
[2025-05-10] MEDS: Enoxaparin 40 MG/0.4 ML SYR SC (08:40)
[2025-05-10] MEDS: Clopidogrel 75 MG TAB PO (08:40)
--- NOTE | 2025-05-10 10:13 | PT.INNT ---
Date of service: 05/10/25 Time of Service: 09:50 PT Notes Visit Reasons: Aspiration Pneumonia Prosper declined PT services this morning. Had just finished washing up with nursing and got back into bed following breakfast. Notes he is too tired. Agreeable to getting up before lunch. Will check in at a later time.
--- NOTE | 2025-05-10 10:26 | W.PM.PROGNOT ---
Date of Service Date of service: 05/10/25 Time of Service: 10:26 Assessment and Plan Assessment and plan (1) Hypoxic respiratory failure: Status: Resolved Assessment and plan: has been weaned off oxygen (2) Aspiration pneumonia: Status: Acute Assessment and plan: Completed 2 days Zosyn down step to Augmentin this afternoon, day 3 of 5 of treatment Albuterol as needed Mucinex twice daily evaluated by speech, no dietary modifications recommended at this time barium swallow completed on sunday (3) Type 2 diabetes mellitus: Status: Chronic Assessment and plan: diabetic diet with no modifications for now, see speech note glucometer measurements before meals and at bedtime with sensitive sliding scale coverage. (4) Vascular dementia with behavior disturbance: Status: Chronic Assessment and plan: no behavioral issues. (5) Bipolar mood disorder: Status: Chronic Assessment and plan: Continue outpatient medical therapy. (6) Hyperlipidemia: Status: Chronic Assessment and plan: Continue outpatient medical therapy. (7) Discharge planning issues: Status: Acute Assessment and plan: Anticipated discharge to home on Sunday, May 11 if remains medically stable on oral antibiotics No services anticipated Dr. Montgomery Subjective Subjective Patient reports: no new complaints, feels better and afebrile; denies shortness of breath Interval history since last seen: Stable off of oxygen eating and drinking without difficulty feeling much improved Exam Narrative Exam Narrative: Thin male appearing younger than stated age head is atraumatic eyes nonicteric noninjected oral mucosas slightly dry neck full range of motion no JVD he is awake alert appropriate respirations even and unlabored breath sounds diminished in the bases no wheezing scattered coarse breath sounds left cardiovascular regular rate and rhythm. Abdomen flat extremities without edema moves all extremities Objective Last Vital Signs Temp 36.3 C L 05/10/25 07:22 Pulse 58 L 05/10/25 07:22 Resp 16 05/10/25 07:22 BP 104/64 05/10/25 07:22 Pulse Ox 92 05/10/25 07:22 Laboratory Results - last 24 hr 05/10/25 05/10/25 06:37 06:37 WBC 4.35 L RBC 2.92 L Hgb 9.2 L D Hct 27.8 L MCV 95 MCH 31.5 MCHC 33.1 RDW 15.3 H Plt Count 113 L MPV 9.2 Sodium 144 Potassium 3.9 Chloride 109 H Carbon Dioxide 28.7 Anion Gap 6.3 BUN 9 Creatinine 0.8 Est GFR (CKD-EPI 2020) 98.21 Glucose 91 Calcium 8.2 L Magnesium 1.8 Cancelled Time Spent with Patient Time Spent with Patient: 35-49 minutes Time was spent: preparing to see the patient(eg.review tests), obtaining and/or reviewing separately otained hiistory, ordering medications,tests, procedures, indepentently interpreting results and counseling the patient
[2025-05-10 10:59] LABS: Lab Add On Test DONE
[2025-05-10 11:14] LABS: VALPROIC ACID 62.8 ug/mL
--- NOTE | 2025-05-10 11:45 | PT.INTREAT ---
Date of service: 05/10/25 Time of Service: 11:30 PT Notes Visit Reasons: Aspiration Pneumonia Inpatient Physical Therapy Treatment Note [facility] Date: May 10, 2025 PRECAUTIONS:Standard SUBJECTIVE: Prosper notes he is ready for a walk. OBJECTIVE: ? Therapeutic Activities ([id number] minutes): Direct one-on-one instruction in dynamic activities to improve functional performance. ? BED MOBILITY/TRANSFERS? Rolling L/R: Independent Supine-sit: Independent? Sit-supine: Independent ? Sit-stand: Independent ? Stand-sit: Independent ? Provided skilled cues and instruction on performance and technique throughout. GAIT? Assistive Device: FWW? Weight bearing: FWB Assist: Standby assist ? Distance:? 300 ft ? Deviation: cueing to remain close to walker. Has tendency to increase forward lean and have walker too far out in front of him. Good brian. ? ASSESSMENT:?Continued increase in overall endurance. Will continue to advance with symptom allowance. PLAN: Continue with current POC TREATMENT CODE/TIME: [id number] minutes 11:30-11:45 am DISCHARGE RECOMMENDATION: Home with home health services
[2025-05-10] MEDS: Amoxicillin 875/Clav. 125 TAB PO (22:30)
[2025-05-10] MEDS: Atorvastatin 40 MG TAB 80 MG PO (22:30)
[2025-05-11 06:58] LABS: Abs Immature Grans 0.01 10^3/uL (0.0-0.06); Absolute Basophil Count 0.01 10^3/uL (0.0-0.2); Absolute Eosinophil Count 0.29 10^3/uL (0.0-0.7); Absolute Monocyte Count 0.32 10^3/uL (0.1-0.8); Absolute Neutrophil Count 1.33 10^3/uL (1.2-6.7); Basophils % 0.3 %; Eosinophils % 7.7 %; HCT 29.1 % (40.0-50.0); HGB 9.8 g/dL (13.5-17.5); Immature Grans % 0.3 %; Lymphocytes % 47.9 %; MCH 31.9 pg (27.0-33.0); MCHC 33.7 % (32.0-36.0); MCV 95 fL (80-95); MPV 9.7 fL (8.0-11.0); Monocytes % 8.5 %; Neutrophils % 35.3 %; Platelet Count 128 10^3/uL (130-400); RBC 3.07 10^6/uL (4.36-5.78); RDW 14.9 % (11.8-14.1); RDW-SD 51.7 fL; WBC 3.76 10^3/uL (4.4-10.8)
[2025-05-11 07:19] LABS: Anion Gap 1.6 mmol/L (3-11); BUN 7 mg/dL (7-18); CO2 30.4 mmol/L (21.0-32.0); CREATININE 0.7 mg/dL (0.70-1.30); Calcium 8.5 mg/dL (8.5-10.1); Chloride 107 mmol/L (98-107); Estimated GFR 102.25 (mL/min/1.73m2); Glucose 79 mg/dL (74-106); Potassium 3.9 mmol/L (3.5-5.1); Sodium 139 mmol/L (136-145)
[2025-05-11 07:51] LABS: Iron 105 ug/dL (65-175); Total Iron Binding Capacity 156 ug/dL (250-450); Transferrin Sat 67 % (20-55)
[2025-05-11 07:53] VITALS: BP 115/65; PULSE 51; RESP 16; TEMP 36; O2SAT 92
[2025-05-11 08:43] VITALS: PULSE 55; O2SAT 95
[2025-05-11] MEDS: Enoxaparin 40 MG/0.4 ML SYR SC (08:43)
[2025-05-11] MEDS: Normal Saline Flush 10 ML SYR IVP (08:44)
[2025-05-11] MEDS: Amoxicillin 875/Clav. 125 TAB PO (08:44)
[2025-05-11] MEDS: Clopidogrel 75 MG TAB PO (08:44)
[2025-05-11 08:52] LABS: Ferritin 435 ng/mL (26-388); Vitamin B12 457 pg/mL (193-986)
--- NOTE | 2025-05-11 09:51 | PT.INTREAT ---
PT Notes Visit Reasons: Aspiration Pneumonia Inpatient Physical Therapy Treatment Note [facility] Date: 05/11/2025 PRECAUTIONS: Fall risk. Standard precautions. Activity as tolerated. SUBJECTIVE: Very cooperative and motivated to participate in PT this morning. Cogswell safe walking without walker but is agreeable that he is more stable using the single point cane. OBJECTIVE: Found seated on a bedside recliner. Foot drag noted on the R side, R shoulder lower than L. ? BED MOBILITY/TRANSFERS: Definite use of hands needed for safety.? Rolling L/R: Independent Supine-sit: Independent? Sit-supine: Independent ? Sit-stand: Independent ? Stand-sit: Independent ? GAIT? Assistive Device: No AD and using an SPC? Weight bearing: FWB Assist: Contact guard assist with no AD; stand by assist with SPC? Distance:? 250 feet without AD, 300 feet with SPC ? Deviation: Foot drag on R, decreased arm swing on R, slowed directional change THERA ACT: Facilitated safe performance of sit<>stand from edge of plinth with no UE support but with back of leg pushing onto edge of plinth to support himself upward with improved ability for slowed descent each time for 10 reps. Worked on increasing unilateral LE stability doing sit>stand>sidestep>sit x 5 reps to R and then to L. ? ASSESSMENT:? Patient demonstrated improved posture and stability with use of a SPC with level surface ambulation. Does not use a brace on the R side. Patient will benefit from continues strengthening and balance retraining to reduce fall risk and mobility independence. PLAN: Continue with current POC as initially established DISCHARGE RECOMMENDATION: Home with home health services TREATMENT CODE/TIME: 30384 x 47 minutes for 3 units (9:51-10:38).
[2025-05-11 12:02] VITALS: BP 102/58; PULSE 58; RESP 16; TEMP 36.2; O2SAT 93
--- NOTE | 2025-05-11 13:42 | DSE_ITS ---
Date of service: 05/11/25 Time of Service: 13:42 DS: Diagnosis Discharge Diagnosis (1) Hypoxic respiratory failure: Status: Resolved (2) Aspiration pneumonia: Status: Acute (3) Type 2 diabetes mellitus: Status: Chronic (4) Vascular dementia with behavior disturbance: Status: Chronic (5) Bipolar mood disorder: Status: Chronic (6) Hyperlipidemia: Status: Chronic (7) Discharge planning issues: Status: Acute Discharge Plan Disposition Patient Disposition: Home W/Home Health Services Condition: Improving Discharge Details Reason For Visit: Aspiration Pneumonia Admit Date/Time: 05/07/25 22:30 Admit Provider: Sathish Brar Attending Provider: Sathish Brar Primary Care Provider: Mu Lora Hospital Course Hospital Course: This 64-year-old male patient who lives with his brother and sister in law with a past medical history of CVA w residual generalized weakness, vascular dementia and diabetes, previous nicotine dependance presented to [facility] with a cough for 1 week , hypoxia with new oxygen needs. In the ED at [facility] the patient did receive Zosyn 1 dose without further and remained hypoxic not being able to be discharged. He was transferred to [facility] for inpatient treatment of what appeared to be an aspiration pneumonia according to [facility] on 05/07/25. Imaging was not available upon transfer and chest XR completed on arrival with concern for LL pneumonia.The work-up completed on arrival showed hypoxemia without hypercapnia and normal pH on VBG, CBC and chemistry were unremarkable except for mild stable anemia. The patient continue to receive Zosyn IV , nebulizer treatments and was weaned off oxygen gradually. Speech therapy consult resulted in recommendation for home health TRAFFIC PERSONNEL SUPERVISOR or outpatient TRAFFIC PERSONNEL SUPERVISOR referral local to pt's home as well as diet modification upon discharge.The patient will aslo benefit from Home health physical therapy and nursing. The patient will be discharged on on Augmentin with follow-up with his PCP within 7 days of discharge. Recommendation for PCP follow-up -Repeat chest XR for resolution of findings to [facility] concerning for pneumonia ( 6 weeks) Discussed with Dr. Montgomery Home Meds and New Rx's Prescriptions: New amoxicillin-pot clavulanate 875-125 mg Tablet 1 tab PO BID Qty: 4 0RF valproic acid (as sodium salt) 250 mg/5 mL (5 mL) Solution 500 mg PO QAM Qty: 500 0RF valproic acid (as sodium salt) 250 mg/5 mL (5 mL) Solution 750 mg PO QPM Qty: 500 0RF Continued atorvastatin [Lipitor] 80 mg tablet 80 mg PO DAILY metformin 500 mg tablet 500 mg PO DAILY cetirizine 10 mg tablet 10 mg PO Q12H PRN clopidogrel [Plavix] 75 mg tablet 75 mg PO DAILY fluticasone propionate 50 mcg/actuation spray,suspension 1 spray intranasal DAILY PRN Rx Instructions: administer into each nostril guaifenesin 600 mg tablet extended release 12hr 600 mg PO BID PRN Discontinued divalproex [Depakote] 500 MG tablet,delayed release (DR/EC) 1,500 mg PO DAILY Discharge Instructions Additional Instructions: Diet Recommendations as per TRAFFIC PERSONNEL SUPERVISOR: ? SOLIDS: 6-Soft & Bite-Sized Solids with extra moisture 5-Minced & Moist Solids - for meats LIQUIDS: 0-Thin Liquids MEDICATIONS: Crushed as able With 4-Purees Stand Alone Forms: Nursing Discharge Form Referrals: Mu Lora [Primary Care Provider, Medicine] - 05/13/25 1:00 pm Activity:: Activity as Tolerated Equipment/Supplies:: Walker Diet:: heart healthy diabetic Discharge Orders Discharge Orders: Discharge Order (Routine); Ordered 05/11/25 Ordered By: Zaira Arce DS: Summary Time Spent with Patient providing and/or coordinating discharge services: Greater than 30 minutes Status at Discharge Functional status at discharge: uses cane/walker Overall status at discharge: patient is progressing back to baseline Mental Status: mental status grossly normal Speech and Movement: speech and movement normal Mood: congruent mood Affect: normal affect Quality:SDOH Health Related Social Needs: Health related social needs material hardship Health related social needs details Patient unable to give more info., poor historian. Health related social needs details: Patient unable to give more info., poor his donald. Exam Narrative Exam Narrative: 64 yo male patient appearing younger than stated age, expressive aphasia at time d/t history of CVA, awake alert appropriate, unlabored respiration with breath sounds diminished in the base, coarser left basilar breath sounds, no wheezing , S1, S2 regular rate, abdomen is non -acute , no bladder distention, moves all extremities Psych Mental Status: mental status grossly normal Speech and Movement: speech and movement normal Mood: congruent mood Affect: normal affect DS: Data Vitals/I&O Vitals and I&O: Vital Signs Temperature 36.2 C L 05/11/25 12:02 Temperature Source Temporal Artery Scan 05/11/25 12:02 Pulse 58 L 05/11/25 12:02 Pulse Rhythm Regular 05/07/25 22:56 Respiratory Rate 16 05/11/25 12:02 Respiratory Effort Normal, Non-Labored 05/07/25 22:56 Respiratory Depth Normal 05/07/25 22:56 Blood Pressure 102/58 L 05/11/25 12:02 Blood Pressure Mean 72 05/11/25 12:02 Pulse Oximetry 93 05/11/25 12:02 Oxygen Delivery Method Room Air 05/11/25 12:02 Oxygen Flow Rate 0 05/11/25 12:02 Pain Level 0 05/11/25 12:02 Intake & Output 05/10/25 05/11/25 05/11/25 23:59 11:59 23:59 Intake Total 440 / 770 Output Total 350 / 350 200 / 300 100 / 300 Balance 90 / 420 -180 / -272 -92 / -272 Weight 61.6 kg Intake: IV 120 / 450 Oral 320 / 320 Output: Urine 350 / 350 200 / 300 100 / 300 Other: Urine Color Yellow Yellow Roy Urine Appearance Clear Clear Urine Odor Normal Normal Comment small amount of blood tinge to urine in brief some blood tinge Data Completed and Pending Labs on day of discharge: Labs from last 24 hours 05/11/25 05/11/25 05/11/25 06:23 05:55 05:35 WBC 3.76 L RBC 3.07 L Hgb 9.8 L Hct 29.1 L MCV 95 MCH 31.9 MCHC 33.7 RDW 14.9 H Plt Count 128 L MPV 9.7 Immature Gran % 0.3 Neutrophils % 35.3 Lymphocytes % 47.9 Monocytes % 8.5 Eosinophils % 7.7 Basophils % 0.3 Nucleated RBC % 0.0 Absolute Neutrophils 1.33 Absolute Lymphocytes 1.80 Absolute Monocytes 0.32 Absolute Eosinophils 0.29 Absolute Basophils 0.01 Sodium 139 Potassium 3.9 Chloride 107 Carbon Dioxide 30.4 Anion Gap 1.6 L BUN 7 Creatinine 0.7 Est GFR (CKD-EPI 2020) 102.25 Glucose 79 Calcium 8.5 Iron 105 TIBC 156 L Transferrin Pending Transferrin % Sat 67 H Ferritin 435 H Vitamin B12 457 Folate 7.0 L PFSH All Active Problems (Updated 05/10/25 @ 17:18 by Stella Day NP) Discharge planning issues (Acute) Vascular dementia with behavior disturbance (Chronic) Type 2 diabetes mellitus (Chronic) Hyperlipidemia (Chronic) Bipolar mood disorder (Chronic) Aspiration pneumonia (Acute) Social History Smoking risk assessment performed?: No Housing: house Do you feel safe in your relationship?: Yes Time Spent with Patient Time Spent with Patient: >85 minutes Time was spent: preparing to see the patient(eg.review tests), obtaining and/or reviewing separately otained hiistory, ordering medications,tests, procedures, referring, communicating with other health acute care assistant, indepentently interpreting results, counseling the patient and care coordination
--- NOTE | 2025-05-11 14:40 | PDOC.HHF2F_ITS ---
Home Health Referral Home Health Orders Clinical synopsis of why skilled professionals are needed: This 64-year-old male patient who lives with his brother and sister in law with a past medical history of CVA w residual generalized weakness, vascular dementia and diabetes, previous nicotine dependance presented to [facility] ED with a cough for 1 week , hypoxia with new oxygen needs. In the ED at [facility] the patient did receive Zosyn 1 dose without further and remained hypoxic not being able to be discharged. He was transferred to [facility] for inpatient treatment of what appeared to be an aspiration pneumonia according to [facility] on 05/07/25. Imaging was not available upon transfer and chest XR completed on arrival with concern for LL pneumonia.The work-up completed on arrival showed hypoxemia without hypercapnia and normal pH on VBG, CBC and chemistry were unremarkable except for mild stable anemia. The patient continue to receive Zosyn IV , nebulizer treatments and was weaned off oxygen gradually. Speech therapy consult resulted in recommendation for home health SURGICAL PROCESSOR or outpatient SURGICAL PROCESSOR referral local to pt's home as well as diet modification upon discharge.The patient will aslo benefit from home health physical therapy and nursing. The patient will be discharged on on Augmentin with follow-up with his PCP within 7 days of discharge. Recommendation for PCP follow-up -Repeat chest XR for resolution of findings to [facility] concerning for pneumonia ( 6 weeks) Discussed with Dr. Montgomery Medical diagnosis necessitation home health referral: Diet modification is indicated as follows for the purpose of reduced risk of aspiration, reduced risk of choking, reduced mastication abilities, reduced oral residue, reduced pharyngeal stasis. Diet Recommendations: ? SOLIDS: 6-Soft & Bite-Sized Solids with extra moisture 5-Minced & Moist Solids - for meats LIQUIDS: 0-Thin Liquids MEDICATIONS: Crushed as able With 4-Purees Registered Nurse: Check all that apply Instruct on new or changed medication(s)/assess compliance: Ordered Physical Therapist: Check all that apply Increase strength & endurance for safe mobility at home: Ordered To design/establish home maintenance program: Ordered Fall reduction therapy program for patient with history of frequent falls: Ordered Home safety evaluation and teaching/gait training including stair management (if applicable): Ordered Speech Therapist: Check all that apply For swallow evaluation/therapy due to dysphagia: Ordered Home Bound Status Requires the aid of supportive device (check all that apply): Walker Describe why leaving home would require a considerable and taxing effort: Requires frequent rest periods Encounter Date and Reason: I certify that a FTF encounter for this patient was performed on May 11, 2025 and that such encounter was related to the primary reason the patient requires home health services. The encounter was conducted in the following manner: * By me as the certifying physician, CASH VAN SALESPERSON, [place] or * By an inpatient physician, CASH VAN SALESPERSON or PA during an inpatient stay who communicated findings to me, Certification And Authentication I certify that I composed the above information based on my clinical judgment relating to this patient's medical condition and, if applicable, clinical findings communicated to me by the NPP or inpatient physician who performed the FTF encounter. Name of Provider that will be monitoring home health services: Mu Lora
--- NOTE | 2025-05-11 16:09 | PDOC.CMDIS ---
Date of service: 05/11/25 Time of Service: 16:09 LACE Index Scoring Tool Questions: Length of Stay (in days): 4 - 6 Was the patient admitted via the E.D.?: No Comorbidities: Diabetes w/o Complication and Dementia E.D. Visits: 0 Answers: Total Score: 9 Risk of Readmission: Low Risk Care Management Discharge Plan Reason for Hospitalization: aspiration pneumonia Discharge Plan: Prosper will return home today with new orders for HH PT, which will be sent to [facility] [place] [facility] [place], the agency that covers the town in which he lives. Prosper's brother, Monty, will drive him home via private vehicle, which CM coordinated. He will follow up with his PCP and discharge plan of care. He is happy to be going home. Patient/Family Education Needs: Review discharge instructions and limitations, discussion of self care needs including ask me three. Services Needed at Discharge: Home Health Care Services (HH PT, [facility] [place] [facility] [place]) SDOH Health Related Social Needs: Health related social needs material hardship Health related social needs details Patient unable to give more info., poor historian. Health related social needs details: Patient unable to give more info., poor historian.
[2025-05-11 16:12] VITALS: BP 127/69; PULSE 62; RESP 16; TEMP 36; O2SAT 97
[2025-05-11] MEDS: Insulin Aspart 300 UNITS/3 ML PEN SC (17:02)
[2025-05-12 08:06] LABS: Transferrin 120 mg/dL (201-352)
== END 2025-05-11 17:44 | disposition home health service (06) | DRG 177 ==
PROVIDERS: Family Medicine; Nurse Practitioner Acute Care; Admitting Provider Hospitalist; PCP Family Medicine; Responsible Provider Nurse Practitioner Acute Care; Visit Provider Hospitalist
DX: J69.0 Pneumonitis due to inhalation of food and vomit (principal); J96.01 Acute respiratory failure with hypoxia; F01.518 Vascular dementia, unspecified severity, with other behavioral disturbance; E11.9 Type 2 diabetes mellitus without complications; F31.9 Bipolar disorder, unspecified; E78.2 Mixed hyperlipidemia; Z87.891 Personal history of nicotine dependence; I69.398 Other sequelae of cerebral infarction; R53.1 Weakness; Z79.84 Long term (current) use of oral hypoglycemic drugs; D64.9 Anemia, unspecified
CPT/HCPCS: 00123; 36415; 80048; 80053; 80307; 82805; 85027; 87637; 92610; 97110; 97161; 97530; J1650; 71045; 74221; 80164; 81003; 82607; 82728; 82746; 83540; 83550; 83735; 84443; 84466; 85025; 94667; 94760; 99223; 99233; 99239; J1815; J2543; J3475